=== PATIENT | male | born 1990 | race Caucasian/White ===

== ENCOUNTER 2018-09-05 11:20 | Emergency (ER) | payer OTHER ==
[2018-09-05 11:28] VITALS: BP 138/77; PULSE 91; O2SAT 97
[2018-09-05] MEDS ORDERED: TORAdol 30 mg Injection IM ONE (11:36)
--- NOTE | 2018-09-05 11:41 | ERPHSYRPT ---
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 Triage Nursing Assessment: pt alert, resp easy, skin w/d/p. moves all ext well, pain to upper shoulder that radiates to back, states worse with movement Physician History: 28-year-old white male arrives with complaint of pain in his left shoulder both superiorly and anteriorly symptoms for 2 weeks pain is worse with movement. Patient denies any injury. Past medical history includes 3 protruding discs in his neck. Past surgical history negative. Occurred: other (symptoms for 2 weeks) Method of Injury: unknown Quality: constant Severity of Pain-Max: moderate Severity of Pain-Current: moderate Extremities Pain Location: shoulder: left Modifying Factors: Improves With: movement (pain with movement of left shoulder) Allergies/Adverse Reactions: No Known Drug Allergies Allergy (Verified 09/05/18 11:28) Home Medications: Dextroamphetamine/Amphetamine [Adderall 30 mg Tablet] 30 mg PO DAILY 09/30/13 [ History] Hydrocodone /APAP 7.5/325 mg [[place] 7.5/325 mg Tab] 1 tab PO BID 09/30/13 [ History] Hx Tetanus, Diphtheria Vaccination/Date Given: No Hx Influenza Vaccination/Date Given: Yes Hx Pneumococcal Vaccination/Date Given: No Immunizations Up to Date: Yes - Review of Systems Constitutional: No Fever, No Chills Eyes: No Symptoms Ears, Nose, & Throat: No Symptoms Respiratory: No Cough, No Dyspnea Cardiac: No Chest Pain, No Edema, No Syncope Abdominal/Gastrointestinal: No Abdominal Pain, No Nausea, No Vomiting, No Diarrhea Genitourinary Symptoms: No Dysuria Musculoskeletal: Joint Pain (pain left shoulder worse with movement), No Neck Pain, No Deformity, No Fall, No Injury, No Joint Redness Skin: No Rash Neurological: No Dizziness, No Focal Weakness, No Sensory Changes Psychological: No Symptoms Endocrine: No Symptoms All Other Systems: Reviewed and Negative - Past Medical History Pertinent Past Medical History: Yes Neurological History: No Pertinent History ENT History: No Pertinent History Cardiac History: No Pertinent History Respiratory History: Asthma Endocrine Medical History: No Pertinent History Musculoskeletal History: Other GI Medical History: No Pertinent History History: No Pertinent History Psycho-Social History: No Pertinent History Male Reproductive Disorders: No Pertinent History Other Medical History: 3 PROTRUDING DISKS IN NECK - Past Surgical History Past Surgical History: No Neuro Surgical History: No Pertinent History Cardiac: No Pertinent History Respiratory: No Pertinent History Gastrointestinal: No Pertinent History Genitourinary: No Pertinent History Male Surgical History: No Pertinent History - Social History Smoking Status: Never smoker Exposure to second hand smoke: No Drug Use: none Patient Lives Alone: No - Nursing Vital Signs Nursing Vital Signs: Initial Vital Signs Temperature 98.0 F 09/05/18 11:23 Pulse Rate 91 H 09/05/18 11:23 Respiratory Rate 16 09/05/18 11:23 Blood Pressure 138/77 09/05/18 11:23 O2 Sat by Pulse Oximetry 97 09/05/18 11:23 Pain Scale Pain Intensity 8 - Physical Exam General Appearance: alert Eyes, Ears, Nose, Throat Exam: moist mucous membranes Neck Exam: non-tender, supple, full range of motion Cardiovascular/Respiratory Exam: chest non-tender, normal breath sounds, regular rate/rhythm, no respiratory distress Abdominal Exam: non-tender, No guarding Back Exam: normal inspection, No CVA tenderness, No vertebral tenderness Shoulder Exam: bone tenderness (left shoulder tender superiorlywith palpation and movement), limited ROM (able to abduct left shoulder to 80 able to flex left shoulder to 90 able to touch right shoulder anteriorly with left hand unable to put left hand behind his back.), No normal inspection (left shoulder tender with movemen., Tender with palpation superior left shoulder. Able to abduct left shoulder to 80able to flex left shoulder to 90.), No non-tender, No normal ROM, No asymmetry, No deformity, No ecchymosis Elbow/Forearm Exam: normal inspection, non-tender, no evidence of injury, normal ROM, No abrasions, No asymmetry, No bone tenderness, No deformity, No ecchymosis, No limited ROM, No pain, No soft tissue tenderness, No swelling Wrist Exam: normal inspection, non-tender, no evidence of injury, normal ROM, No abrasions, No asymmetry, No bone tenderness, No deformity, No ecchymosis, No mass, No nodules, No pain, No soft tissue tenderness, No swelling Hand Exam: normal inspection, non-tender, no evidence of injury, normal ROM, No abrasions, No asymmetry, No bone tenderness, No deformity, No ecchymosis, No infection, No laceration, No limited ROM, No nail injury, No soft tissue tenderness, No stiffness, No swelling Neuro/Tendon Exam: normal sensation, normal motor functions Skin Exam: normal color, warm, dry SpO2 Interpretation: normal (978%) SpO2: 97 - Course Nursing assessment & vital signs reviewed: Yes - Radiology Exams Left Shoulder X-ray Interpretation: Discussed w/ radiologist (x-ray left shoulder: Stable humeral neck bone island. No new/acute bony articular or soft tissue abnormalities) Ordered Tests: Active Orders 24 hr Category Date Time Status Sling Application STAT Care 09/05/18 12:08 Active SHOULDER Stat Exams 09/05/18 11:35 Taken Medication Summary Discontinued Medications Generic Name Dose Route Start Last Admin Trade Name Freq PRN Reason Stop Dose Admin Ketorolac Tromethamine 60 mg 09/05/18 11:36 09/05/18 11:53 Toradol 30 Mg Injection IM 09/05/18 11:37 60 mg STAT ONE Administration Ketorolac Tromethamine Confirm 09/05/18 11:52 Toradol 30 Mg Injection Administered 09/05/18 11:53 Dose 60 mg .ROUTE .ST[place]ando-MED ONE - Progress Progress: improved Progress Note: 09/05/18 11:42 28-year-old white male arrives with complaint of pain in his left superior shoulder worse with movement symptoms going on for 2 weeks she denies any obvious injury on physical examination he has pain with palpation superior left shoulder there is also pain when patient tries to move his left shoulder he is able to abduct his left shoulder to 80 she is able to flex his left shoulder to 90 he is able to touch the opposite shoulder anteriorly he is unable to put his left arm or hand behind his back. He has full range of motion to his left elbow hand wrist and fingers good capillary refill to all fingers sensation intact to all fingers radial and ulnar pulses are intact 2 over 4.Meter Reader are equal and symmetrical 5 over 5 Patient does have a history of protruding disks in his neck however he has full range of motion to his neck he spontaneously moves this one talking is able to look around the room without problems he does not have pain with palpation to his neck. Will go ahead and give patient Toradol 60 mg IM also will obtain x-ray of the patient's left shoulder. Inspect has been reviewed patient is currently on hydrocodone acetaminophen 5/ 325 for his pain chronically. 09/05/18 12:04 patient's x-ray left shoulder: Impression: Stable humeral neck bone island. No new/acute bony articular, or soft tissue abnormalities. - Departure Departure Disposition: Home Clinical Impression: Left shoulder pain Qualifiers: Chronicity: acute Qualified Code(s): M25.512 - Pain in left shoulder Left shoulder strain Qualifiers: Encounter type: initial encounter Qualified Code(s): S46.912A - Strain of unspecified muscle, fascia and tendon at shoulder and upper arm level, left arm , initial encounter Condition: Fair Critical Care Time: No Referrals: EMILY LAI MD [Primary Care Provider] - Additional Instructions: Return home. Ice to left shoulder 24-48 hours. Wear sling left arm 48-72 hours. Naprosyn as prescribed. Follow-up with your family doctor if symptoms no better in 48 hours worse or persist longer than one week. Return for acute distress or for severe symptoms. Prescriptions: Naproxen 500 mg [Naprosyn 500 MG] 500 mg PO BID #14 tablet
[2018-09-05] MEDS ORDERED: TORAdol 30 mg Injection ONE (11:52)
--- NOTE | 2018-09-05 12:11 | XRAY ---
Indication: Pain. Comparison: February 13, 2013. 3 views of the left shoulder demonstrates stable humeral neck bone island. No new/acute bony, articular, or soft tissue abnormalities.
== END 2018-09-05 12:22 | disposition home or self-care (01) ==
LOC: ED 11:20
DX: M25.512 Pain in left shoulder (principal); S46.912A Strain of unspecified muscle, fascia and tendon at shoulder and upper arm level, left arm, initial encounter; M50.20 Other cervical disc displacement, unspecified cervical region
CPT/HCPCS: 73030; 96372; 99284; J1885

== ENCOUNTER 2018-10-24 11:38 | Emergency (ER) | payer OTHER ==
[2018-10-24 12:21] VITALS: O2SAT 98
[2018-10-24] MEDS ORDERED: TORAdol 30 mg Injection IM ONE (12:36)
[2018-10-24] MEDS ORDERED: TORAdol 30 mg Injection ONE (12:39)
--- NOTE | 2018-10-24 12:45 | ERPHSYRPT ---
- History of Present Illness Time Seen by Provider: 10/24/18 12:36 Source: patient Exam Limitations: no limitations Patient Subjective Stated Complaint: Pt states "I have had neck problems for years, I have had shoulder problems for awhile as well. I go to Dr. Daniel for my shoulder and Dr. Lai for my neck. I got a cortizone shot on the of this month and a nerve test on the . I have bulging disks in my neck and rotator cuff issues in the left shoulder. Today I started to hurt really bad and my fingers went numb on my left hand." Triage Nursing Assessment: Pt presented alert and oriented X 3, skin pwd. Pt ambualtes with a stiff neck and guards his left shouler, no bruising, swelling, deformity noted. Physician History: 28-year-old white male with history of chronic neck and shoulder pain who has seen Dr. Alonso and Dr. Lai for the same. Who has had a recent injection on 04 October. And apparently had physical therapy yesterday. Patient states that he at work and he had sharp shooting pains down his left shoulder and arm and hand associated with some numbness of the left hand. He has some pain over the trapezius. He denies new injury. Past medical history protruding discs in his neck, asthma, chronic left shoulder pain and left neck pain. Patient is on hydrocodone and dextroamphetamine/amphetamine at home Timing/Duration: today Severity: moderate Modifying Factors: Improves With: nothing Associated Symptoms: No nausea, No vomiting, No abdominal pain, No shortness of breath, No heartburn, No diaphoresis, No cough, No chills, No chest pain, No fever, No headaches, No loss of appetite, No malaise, No rash, No syncope, No seizure, No weakness Allergies/Adverse Reactions: No Known Drug Allergies Allergy (Verified 09/05/18 11:28) Home Medications: Dextroamphetamine/Amphetamine [Adderall 30 mg Tablet] 30 mg PO DAILY 09/30/13 [ History] Hydrocodone /APAP 7.5/325 mg [[place] 7.5/325 mg Tab] 1 tab PO BID 09/30/13 [ History] Hx Tetanus, Diphtheria Vaccination/Date Given: Yes Hx Influenza Vaccination/Date Given: Yes Hx Pneumococcal Vaccination/Date Given: No Immunizations Up to Date: Yes - Review of Systems Constitutional: No Fever, No Chills Eyes: No Symptoms Ears, Nose, & Throat: No Symptoms Respiratory: No Cough, No Dyspnea Cardiac: No Chest Pain, No Edema, No Syncope Abdominal/Gastrointestinal: No Abdominal Pain, No Nausea, No Vomiting, No Diarrhea Genitourinary Symptoms: No Dysuria Musculoskeletal: Other (pain radiating from neck across trapezius down shoulder into hand on the left) Skin: No Rash Neurological: Parasthesia (patient states he felt numbness in the left hand) Psychological: No Symptoms Endocrine: No Symptoms All Other Systems: Reviewed and Negative - Past Medical History Pertinent Past Medical History: Yes Neurological History: No Pertinent History ENT History: No Pertinent History Cardiac History: No Pertinent History Respiratory History: Asthma Endocrine Medical History: No Pertinent History Musculoskeletal History: Osteoarthritis GI Medical History: No Pertinent History History: No Pertinent History Psycho-Social History: No Pertinent History Male Reproductive Disorders: No Pertinent History Other Medical History: OA of knees. C4-6 disc protrusion - Past Surgical History Past Surgical History: No Neuro Surgical History: No Pertinent History Cardiac: No Pertinent History Respiratory: No Pertinent History Gastrointestinal: No Pertinent History Genitourinary: No Pertinent History Male Surgical History: No Pertinent History - Social History Smoking Status: Former smoker Exposure to second hand smoke: Yes Drug Use: none Patient Lives Alone: No - Nursing Vital Signs Nursing Vital Signs: Initial Vital Signs Temperature 98.1 F 10/24/18 12:16 Pulse Rate 67 10/24/18 12:16 Respiratory Rate 16 10/24/18 12:16 Blood Pressure 135/84 10/24/18 12:16 O2 Sat by Pulse Oximetry 98 10/24/18 12:16 Pain Scale Pain Intensity 9 - Physical Exam General Appearance: mild distress, alert Eye Exam: PERRL/EOMI, eyes nml inspection Ears, Nose, Throat Exam: normal ENT inspection, TMs normal, pharynx normal, moist mucous membranes Neck Exam: normal inspection, supple, full range of motion, No non-tender (neck tender with palpation lateral left neck and over trapezius) Respiratory Exam: normal breath sounds, lungs clear, No respiratory distress Cardiovascular Exam: regular rate/rhythm, normal heart sounds, normal peripheral pulses, capillary refill <2 sec Gastrointestinal/Abdomen Exam: soft, normal bowel sounds, No tenderness, No mass Back Exam: normal inspection, normal range of motion, No CVA tenderness, No vertebral tenderness Neurologic Exam: alert, oriented x 3, cooperative, normal mood/affect, nml cerebellar function, nml station & gait, sensation nml, other (patient with a weak effort at gripping left hand but full range of motion all extremities), No motor deficits, No sensory deficit Skin Exam: normal color, warm, dry, No rash Lymphatic Exam: No adenopathy SpO2 Interpretation: normal (98%) SpO2: 98 - Course Nursing assessment & vital signs reviewed: Yes - Radiology Exams Left Shoulder X-ray Interpretation: Discussed w/ radiologist (x-ray left shoulder: Impression : Stable humeral neck bone island. No new/acute bony, articular, or soft tissue abnormalities.) C-Spine X-ray Interpretation: Discussed w/ radiologist (x-ray C-spine: Impression: Normal alignment with vertebral body height/disc space is maintained and incidental left lung apex calcified granuloma. No new/acute bony, articular, or soft tissue abnormalities.) Ordered Tests: Active Orders 24 hr Category Date Time Status Sling Application STAT Care 10/24/18 13:15 Active CERVICAL SPINE (2 OR 3 VIEW) Stat Exams 10/24/18 12:34 Completed SHOULDER Stat Exams 10/24/18 12:35 Completed Medication Summary Discontinued Medications Generic Name Dose Route Start Last Admin Trade Name Freq PRN Reason Stop Dose Admin Ketorolac Tromethamine 60 mg 10/24/18 12:36 10/24/18 12:41 Toradol 30 Mg Injection IM 10/24/18 12:37 60 mg STAT ONE Administration Ketorolac Tromethamine Confirm 10/24/18 12:39 Toradol 30 Mg Injection Administered 10/24/18 12:40 Dose 60 mg .ROUTE .[place]-MED ONE - Progress Progress: improved Progress Note: 10/24/18 13:16 Patient's x-ray left shoulder stable humeral neck bone island. No new/acute bony, articular, or soft tissue abnormalities. Patient x-ray C-spine impression normal alignment with vertebral body height/ disc spaces maintained an incidental left lung apex calcified granuloma. No new /acute bony, articular, or soft tissue abnormalities. Patient is given Toradol 60 mg IM in the emergency room will also place patient on Flexeril 10 mg orally [address] sling on left arm. Patient apparently has an appointment with Dr. Lai on Sunday. He is to continue his pain medications as prescribed by Dr. Lai. - Departure Departure Disposition: Home Clinical Impression: Radiculopathy affecting upper extremity, Paresthesia of left arm Left shoulder pain Qualifiers: Chronicity: acute Qualified Code(s): M25.512 - Pain in left shoulder Condition: Fair Critical Care Time: No Referrals: EMILY LAI MD [Primary Care Provider] - Additional Instructions: Return home. Cold packs left shoulder 24-48 hours. Use sling 48-72 hours. Followup with your family DrDiane at prearranged appointment, sooner if problems worsening of condition. Return for acute distress or for severe symptoms. Cyclobenzaprine 10 mg orally 3 times a day for 5 days as needed Prescriptions: Cyclobenzaprine HCl 10 mg [Cyclobenzaprine 10 MG] 10 mg PO TID PRN #15 tablet
--- NOTE | 2018-10-24 13:09 | XRAY ---
Indication: Pain. No acute injury. Comparison: September 05, 2018. 3 views of the left shoulder demonstrates stable humeral neck bone island. No new/acute bony, articular, or soft tissue abnormalities.
--- NOTE | 2018-10-24 13:11 | XRAY ---
Indication: Neck pain radiating left arm. History bulging disc. Comparison: CT cervical spine September 30, 2013. 4 views of the cervical spine again demonstrates normal alignment with vertebral body heights/disc spaces maintained and incidental left lung apex calcified granuloma. No new/acute bony, articular, or soft tissue abnormalities.
[2018-10-24 13:22] VITALS: BP 121/75; PULSE 74
== END 2018-10-24 13:29 | disposition home or self-care (01) ==
LOC: ED 11:38
DX: M25.512 Pain in left shoulder (principal); M54.10 Radiculopathy, site unspecified; R20.2 Paresthesia of skin; M54.2 Cervicalgia
CPT/HCPCS: 72040; 73030; 96372; 99284; J1885

== ENCOUNTER 2020-10-27 12:08 | Emergency (ER) | payer OTHER ==
--- NOTE | 2020-10-27 12:25 | ERPHSYRPT ---
- History of Present Illness Time Seen by Provider: 10/27/20 12:20 Source: patient Exam Limitations: no limitations Patient Subjective Stated Complaint: Swelling Triage Nursing Assessment: Patient ambulated back to ED and transferred self to bed. Patient A+O x3. patient's skin pink, warm and dry. Patient complains of waking up with facial swelling at 0700 this am. Patient states his face turned red and started getting warm. Patient had heart cath yesterday per Dr. Berman. Patient denies pain or discomfort. Physician History: This is a 30-year-old white male who has a history of dental infection and also underwent a cardiac catheterization by Dr. Berman yesterday morning. This morning, the patient presents to the emergency department with complaints of facial swelling. Patient has no pain anywhere. The cardiac catheterization was performed through the right upper extremity. Patient has no shortness of br eath. He has no evidence of any rash. He has no chest pain. He is not short of breath. He has no facial pain. He has no abdominal pain. He has no significant pain in his right wrist where the surgery was performed. Patient did take Benadryl at 7:00 this morning and then again at 11:00 this morning. Patient states that he has no known exposures to any new pets, soaps, medications. No other individuals of similar issues. Patient has not been bitten by an insect of any type. Timing/Duration: today Severity: mild Modifying Factors: Improves With: nothing Allergies/Adverse Reactions: No Known Drug Allergies Allergy (Verified 10/27/20 12:09) Hx Tetanus, Diphtheria Vaccination/Date Given: Yes Hx Influenza Vaccination/Date Given: No Hx Pneumococcal Vaccination/Date Given: No Immunizations Up to Date: Yes Travel Risk - International Travel Have you traveled outside of the country in past 3 weeks: No - Coronavirus Screening Are you exhibiting any of the following symptoms?: No - Vaccine Status Have you recieved a Covid-19 vaccination: No - Review of Systems Constitutional: No Symptoms Eyes: No Symptoms Ears, Nose, & Throat: Other (Bilateral facial swelling) Respiratory: No Symptoms Cardiac: No Symptoms Abdominal/Gastrointestinal: No Symptoms Genitourinary Symptoms: No Symptoms Musculoskeletal: No Symptoms Skin: No Rash Neurological: No Symptoms Psychological: No Symptoms Endocrine: No Symptoms Hematologic/Lymphatic: No Symptoms Immunological/Allergic: No Symptoms All Other Systems: Reviewed and Negative - Past Medical History Pertinent Past Medical History: Yes Neurological History: Migraines ENT History: No Pertinent History Cardiac History: No Pertinent History Respiratory History: Asthma Endocrine Medical History: No Pertinent History Musculoskeletal History: Osteoarthritis GI Medical History: GERD History: No Pertinent History Psycho-Social History: No Pertinent History Male Reproductive Disorders: No Pertinent History Other Medical History: OA of knees. C4-6 disc protrusion - Past Surgical History Past Surgical History: Yes Neuro Surgical History: No Pertinent History Cardiac: Cardiac Catheterization Respiratory: No Pertinent History Gastrointestinal: No Pertinent History Genitourinary: No Pertinent History Musculoskeletal: No Pertinent History Male Surgical History: No Pertinent History Other Surgical History: Cardiac cath X 2 - Social History Smoking Status: Never smoker Exposure to second hand smoke: Yes Drug Use: none Patient Lives Alone: No - Nursing Vital Signs Nursing Vital Signs: Initial Vital Signs Temperature 98.2 F 10/27/20 12:11 Pulse Rate 71 10/27/20 12:11 Respiratory Rate 18 10/27/20 12:11 Blood Pressure 119/67 10/27/20 12:11 O2 Sat by Pulse Oximetry 100 10/27/20 12:11 Pain Scale Pain Intensity 0 - Physical Exam General Appearance: no apparent distress, alert, anxiety Eye Exam: PERRL/EOMI Ears, Nose, Throat Exam: normal ENT inspection, moist mucous membranes, other (Poor dentition right worse than left) Neck Exam: normal inspection, non-tender, supple, full range of motion Respiratory Exam: normal breath sounds, lungs clear, airway intact, No chest tenderness, No respiratory distress Cardiovascular Exam: regular rate/rhythm, normal heart sounds, normal peripheral pulses Gastrointestinal/Abdomen Exam: soft, normal bowel sounds, No tenderness Rectal Exam: not done Back Exam: normal inspection, normal range of motion, vertebral tenderness, No CVA tenderness Extremity Exam: normal inspection, normal range of motion, pelvis stable, other (The bandage was removed from the right wrist. This was taken off greater than for 24 hours after the procedure was performed. This was the instructions given to the patient. The area showed no bruising, there is no bleeding. There is no evidence of any infection or rash. We replaced a bandage p) Neurologic Exam: alert, oriented x 3, cooperative, bisque kiln placer II-XII nml as tested, normal mood/affect, nml cerebellar function, nml station & gait, sensation nml Skin Exam: normal color, warm, dry Lymphatic Exam: No adenopathy SpO2 Interpretation: normal SpO2: 100 O2 Delivery: Room Air - Course Nursing assessment & vital signs reviewed: Yes EKG Interpreted by Me: RATE (71), Sinus Rhythm, NORMAL AXIS, NORMAL INTERVALS, NORMAL QRS, NORMAL ST-T, Other (No acute ischemic changes on today's EKG. When compared to EKG dated 06/17/2015, the right bundle branch block has resolved.) Ordered Tests: Active Orders 24 hr Category Date Time Status Division Sales Manager STAT Care 10/27/20 12:25 Active EKG-ER Only STAT Care 10/27/20 12:25 Active IV Insertion STAT Care 10/27/20 12:25 Active Pulse Oximetry (ED) STAT Care 10/27/20 12:25 Active CBC W DIFF Stat Lab 10/27/20 12:25 Completed CMP Stat Lab 10/27/20 12:25 Completed D-DIMER QUANTITATIVE Stat Lab 10/27/20 12:25 Completed NT PRO BNP Stat Lab 10/27/20 12:25 Completed TROPONIN Q3H Lab 10/27/20 12:25 Completed TROPONIN Q3H Lab 10/27/20 15:30 Ordered TROPONIN Q3H Lab 10/27/20 18:30 Ordered TROPONIN Q3H Lab 10/27/20 21:30 Ordered TROPONIN Q3H Lab 10/28/20 00:30 Ordered Medication Summary Discontinued Medications Generic Name Dose Route Start Last Admin Trade Name Freq PRN Reason Stop Dose Admin Cephalexin HCl 500 mg 10/27/20 12:50 10/27/20 13:07 Keflex 500 Mg PO 10/27/20 12:51 500 mg STAT ONE Administration Cephalexin HCl Confirm 10/27/20 13:02 Keflex 500 Mg Administered 10/27/20 13:03 Dose 500 mg .ROUTE .STK-MED ONE Diphenhydramine HCl 25 mg 10/27/20 12:49 10/27/20 13:12 Benadryl 50 Mg/Ml IV 10/27/20 12:50 25 mg STAT ONE Administration Diphenhydramine HCl Confirm 10/27/20 13:01 Benadryl 50 Mg/Ml Administered 10/27/20 13:02 Dose 50 mg .ROUTE .STK-MED ONE Famotidine 40 mg 10/27/20 12:49 10/27/20 13:14 Pepcid 20 Mg Vial IV 10/27/20 12:50 40 mg STAT ONE Administration Famotidine Confirm 10/27/20 13:02 Pepcid 20 Mg Vial Administered 10/27/20 13:03 Dose 40 mg IV .STK-MED ONE Methylprednisolone Sodium Succinate 125 mg 10/27/20 12:50 10/27/20 13:09 Solu-Medrol 125 Mg IV 10/27/20 12:51 125 mg STAT ONE Administration Methylprednisolone Sodium Succinate Confirm 10/27/20 13:02 Solu-Medrol 125 Mg Administered 10/27/20 13:03 Dose 125 mg .ROUTE .STK-MED ONE Lab/Rad Data: Laboratory Result Diagrams 10/27/20 12:25 10/27/20 12:25 Laboratory Results 10/27/20 10/27/20 10/27/20 Range/Units 12:25 12:25 12:25 WBC (4.0-10.5) K/mm3 RBC (4.1-5.6) M/mm3 Hgb (12.5-18.0) gm/dl Hct (42-50) % MCV (78-100) fl MCH (26-32) pg MCHC (32-36) g/dl RDW (11.5-14.0) % Plt Count (150-450) K/mm3 MPV (7.5-11.0) fl Gran % (36.0-66.0) % Eos # (Auto) (0-0.5) Absolute Lymphs (auto) (1.0-4.6) Absolute Monos (auto) (0.0-1.3) Lymphocytes % (24.0-44.0) % Monocytes % (0.0-12.0) % Eosinophils % (0.00-5.0) % Basophils % (0.0-0.4) % Absolute Granulocytes (1.4-6.9) Basophils # (0-0.4) D-Dimer < 215 L (215-500) ng/mL Sodium 138 (137-145) mmol/L Potassium 4.6 (3.5-5.1) mmol/L Chloride 104 (98-107) mmol/L Carbon Dioxide 26 (22-30) mmol/L Anion Gap 13.2 (5-15) MEQ/L BUN 16 (9-20) mg/dL Creatinine 0.73 (0.66-1.25) mg/dL Estimated GFR > 60.0 ML/MIN Glucose 104 (74-106) mg/dL Calcium 9.0 (8.4-10.2) mg/dL Total Bilirubin 1.50 H (0.2-1.3) mg/dL AST 38 (17-59) U/L ALT 30 (0-50) U/L Alkaline Phosphatase 48 (38-126) U/L Troponin I < 0.012 (0.000-0.034) ng/mL NT-Pro-B Natriuret Pep 30.5 (0-450) pg/mL Serum Total Protein 6.8 (6.3-8.2) g/dL Albumin 4.1 (3.5-5.0) g/dL 10/27/20 Range/Units 12:25 WBC 7.4 (4.0-10.5) K/mm3 RBC 5.23 (4.1-5.6) M/mm3 Hgb 15.1 (12.5-18.0) gm/dl Hct 45.6 (42-50) % MCV 87.2 (78-100) fl MCH 28.9 (26-32) pg MCHC 33.1 (32-36) g/dl RDW 12.7 (11.5-14.0) % Plt Count 179 (150-450) K/mm3 MPV 11.0 (7.5-11.0) fl Gran % 74.3 H (36.0-66.0) % Eos # (Auto) 0.19 (0-0.5) Absolute Lymphs (auto) 1.33 (1.0-4.6) Absolute Monos (auto) 0.36 (0.0-1.3) Lymphocytes % 17.9 L (24.0-44.0) % Monocytes % 4.9 (0.0-12.0) % Eosinophils % 2.6 (0.00-5.0) % Basophils % 0.3 (0.0-0.4) % Absolute Granulocytes 5.52 (1.4-6.9) Basophils # 0.02 (0-0.4) D-Dimer (215-500) ng/mL Sodium (137-145) mmol/L Potassium (3.5-5.1) mmol/L Chloride (98-107) mmol/L Carbon Dioxide (22-30) mmol/L Anion Gap (5-15) MEQ/L BUN (9-20) mg/dL Creatinine (0.66-1.25) mg/dL Estimated GFR ML/MIN Glucose (74-106) mg/dL Calcium (8.4-10.2) mg/dL Total Bilirubin (0.2-1.3) mg/dL AST (17-59) U/L ALT (0-50) U/L Alkaline Phosphatase (38-126) U/L Troponin I (0.000-0.034) ng/mL NT-Pro-B Natriuret Pep (0-450) pg/mL Serum Total Protein (6.3-8.2) g/dL Albumin (3.5-5.0) g/dL - Progress Progress: unchanged Counseled pt/family regarding: lab results, diagnosis, need for follow-up - Departure Departure Disposition: Home Clinical Impression: Contact dermatitis, Dental infection Condition: Stable Critical Care Time: No Referrals: EMILY LAI MD [Primary Care Provider] - Additional Instructions: Take Benadryl 25 mg orally 3 times a day for the next 4 days. Take all other medications as prescribed. Return to the emergency department if symptoms worsen. Prescriptions: Prednisone 10 mg [Deltasone 10 mg] 10 mg PO TID #12 tablet Cephalexin Mh 500 mg [Keflex 500 mg] 500 mg PO TID #21 capsule Famotidine 20 mg [Pepcid 20 MG] 20 mg PO DAILY #10 tablet
[2020-10-27 12:47] LABS: Absolute Neutrophil Ct (ANC) 5.52 (1.4-6.9); BASOPHIL % 0.3 % (0.0-0.4); Basophil (Absolute #) 0.02 (0-0.4); Eosinophil % 2.6 % (0.00-5.0); Eosinophil (Absolute #) 0.19 (0-0.5); Hematocrit 45.6 % (42-50); Hemoglobin 15.1 gm/dl (12.5-18.0); Lymphocyte (Absolute #) 1.33 (1.0-4.6); Lymphocytes % 17.9 % (24.0-44.0); Mean Cell Volume 87.2 fl (78-100); Mean Corpuscular Hemoglobin 28.9 pg (26-32); Mean Corpuscular Hgb Concent. 33.1 g/dl (32-36); Monocyte (Absolute #) 0.36 (0.0-1.3); Monocytes % 4.9 % (0.0-12.0); Neutrophil % 74.3 % (36.0-66.0); Platelet Count 179 K/mm3 (150-450); Red Blood Count 5.23 M/mm3 (4.1-5.6); Red Cell Distribution Width 12.7 % (11.5-14.0); White Blood Count 7.4 K/mm3 (4.0-10.5)
[2020-10-27] MEDS ORDERED: Pepcid 20 MG VIAL IV ONE ×2 (12:49→13:02)
[2020-10-27] MEDS ORDERED: BENADRYL 50 MG/ML IV ONE (12:49)
[2020-10-27] MEDS ORDERED: solu-MEDROL 125 MG IV ONE (12:50)
[2020-10-27] MEDS ORDERED: KEFLEX 500 MG PO ONE (12:50)
[2020-10-27] MEDS ORDERED: BENADRYL 50 MG/ML ONE (13:01)
[2020-10-27] MEDS ORDERED: solu-MEDROL 125 MG ONE (13:02)
[2020-10-27] MEDS ORDERED: KEFLEX 500 MG ONE (13:02)
[2020-10-27 13:09] LABS: ALBUMIN 4.1 g/dL (3.5-5.0); ALKALINE PHOSPHATASE 48 U/L (38-126); ANION GAP 13.2 MEQ/L (5-15); BLOOD UREA NITROGEN 16 mg/dL (9-20); CHLORIDE 104 mmol/L (98-107); Carbon Dioxide 26 mmol/L (22-30); Creatinine 1 0.73 mg/dL (0.66-1.25); EST GLOMERULAR FILTRATION RATE > 60.0 ML/MIN; Glucose 104 mg/dL (74-106); NT PRO BNP 30.5 pg/mL (0-450); Potassium 4.6 mmol/L (3.5-5.1); SGOT/AST 38 U/L (17-59); SGPT/ALT 30 U/L (0-50); SODIUM 138 mmol/L (137-145); Total Protein 6.8 g/dL (6.3-8.2)
[2020-10-27 13:45] VITALS: BP 122/79; PULSE 69; O2SAT 98
== END 2020-10-27 14:07 | disposition home or self-care (01) ==
LOC: ED 12:08
DX: L25.9 Unspecified contact dermatitis, unspecified cause (principal); K04.7 Periapical abscess without sinus
CPT/HCPCS: 36000; 36415; 80053; 83880; 84484; 85025; 85379; 93005; 93041; 94760; 96374; 96375; 99284; J1200; J2930; A9270-GY

== ENCOUNTER 2021-01-24 21:11 | Emergency (ER) | payer OTHER ==
[2021-01-24 21:44] LABS: Absolute Neutrophil Ct (ANC) 6.73 (1.4-6.9); BASOPHIL % 0.2 % (0.0-0.4); Basophil (Absolute #) 0.02 (0-0.4); Eosinophil % 1.3 % (0.00-5.0); Eosinophil (Absolute #) 0.13 (0-0.5); Hematocrit 45.1 % (42-50); Hemoglobin 15.2 gm/dl (12.5-18.0); Lymphocytes % 23.8 % (24.0-44.0); Mean Cell Volume 87.6 fl (78-100); Mean Corpuscular Hemoglobin 29.5 pg (26-32); Mean Corpuscular Hgb Concent. 33.7 g/dl (32-36); Mean Platelet Volume 11.6 fl (7.5-11.0); Monocyte (Absolute #) 0.81 (0.0-1.3); Neutrophil % 66.7 % (36.0-66.0); Platelet Count 183 K/mm3 (150-450); Red Blood Count 5.15 M/mm3 (4.1-5.6); Red Cell Distribution Width 12.9 % (11.5-14.0); White Blood Count 10.1 K/mm3 (4.0-10.5)
[2021-01-24 21:56] LABS: ALBUMIN 4.7 g/dL (3.5-5.0); ALKALINE PHOSPHATASE 67 U/L (38-126); ANION GAP 15.7 MEQ/L (5-15); BLOOD UREA NITROGEN 18 mg/dL (9-20); CHLORIDE 104 mmol/L (98-107); Calcium 9.5 mg/dL (8.4-10.2); Carbon Dioxide 26 mmol/L (22-30); Creatinine 1 0.78 mg/dL (0.66-1.25); EST GLOMERULAR FILTRATION RATE > 60.0 ML/MIN; Glucose 85 mg/dL (74-106); SGOT/AST 36 U/L (17-59); SGPT/ALT 29 U/L (0-50); SODIUM 142 mmol/L (137-145); Total Protein 7.5 g/dL (6.3-8.2)
--- NOTE | 2021-01-24 22:15 | ERPHSYRPT ---
- History of Present Illness Source: patient, other () Patient Subjective Stated Complaint: Patient states ge doesn't remember much. Consulted with and states " he was sitting at home on the couch and he started acting funny around 194 and then I asked him what was wrong and he told me he was having chest pain. I then gave him a Nitro and waited and within 5 minutes he told me pain wasn't any better so I gave another Nitro andf waited and called his mom and she told me I should bring him to ER." Triage Nursing Assessment: Patient arrived to ED in W/C and was 1 assist getting to ER room. Patient independent with transfer to bed. Patient A/O times 4. Patient stated he doesn't remember much of what happened. Patient stated he was sitting on couch and then the next thing he remembers is being in the kitchen but stated he didn't fall. Patient told RN that before everything when he was sitting on couch he got a feeling of nausea. RN asked if he vomited and stated no. Patient upon arrival to ER room denies any chest pain. Patient stated he has pain all over not one specific area. Patient stated that is normal for him. Patient stated he has HX of SD and has had 2 heart caths. Patient denies any pain that went into left arm,back or jaw. Patient's central color W NL. Respiratory regular and easy and non-labored. Patient denies any SOB. Patient shows no S/S of respiratory distress. Apical pulse auscultated at 80 and regular. Patient with no dependent edema noted. + Apical and pedal pulses noted bilateral. Bilateral hand armature inspector strong and equal. Patient bilateral pupils brisk and equal. stated patient has been under alot of stress because he started back to school and he was trying to get his papers done on time. 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 Patient states he takes 81MG of ASA daily. Physician History: 30 yo wf w syncopal episode while in kitchen w children. states that pt has cardiac cath x2 by Dr. Berman who believes that pt has had an SD. He has switched to Dr. Brown in [place] whom he will see for first time on 01/28/21. Pt states that he was having some chest pain before his syncopal episode. gave him SL NTG x2 at home. Focal weakness/dyspnea/N/V/cough/MEMBRENO/fever are all denied at present. Witnessed: unwitnessed Prior Episodes: single episode today Timing/Duration: other (Before arrival) Context: standing Loss of Consciousness: brief (seconds) Charcter of event(s): collapsed Allergies/Adverse Reactions: No Known Drug Allergies Allergy (Verified 01/24/21 21:31) Home Medications: Albuterol 17 g IH Q4-6HPRN PRN 01/24/21 [History] Atorvastatin Calcium 80 mg PO HS 01/24/21 [History] Dextroamphetamine/Amphetamine [Dextroamp-Amphetamin 15 mg Tab] 15 mg PO DAILY 01/24/21 [History] Naproxen 500 mg [Naprosyn 500 MG] 500 mg PO BID 01/24/21 [History] Sacubitril/Valsartan [Entresto 24 mg-26 mg Tablet] 1 tab PO DAILY 01/24/21 [Hi story] Hx Tetanus, Diphtheria Vaccination/Date Given: Yes Hx Influenza Vaccination/Date Given: No Hx Pneumococcal Vaccination/Date Given: No Immunizations Up to Date: Yes Travel Risk - International Travel Have you traveled outside of the country in past 3 weeks: No - Coronavirus Screening Are you exhibiting any of the following symptoms?: No Close contact with a COVID-19 positive Pt in past 14-21 Days: No - Vaccine Status Have you recieved a Covid-19 vaccination: No - Past Medical History Pertinent Past Medical History: Yes Neurological History: Migraines ENT History: No Pertinent History Cardiac History: Hypertension, Myocardial Infarction (SD) Respiratory History: Asthma Endocrine Medical History: No Pertinent History Musculoskeletal History: Osteoarthritis GI Medical History: GERD History: No Pertinent History Psycho-Social History: No Pertinent History Male Reproductive Disorders: No Pertinent History Other Medical History: OA of knees. C4-6 disc protrusion - Past Surgical History Past Surgical History: Yes Neuro Surgical History: No Pertinent History Cardiac: Cardiac Catheterization Respiratory: No Pertinent History Gastrointestinal: No Pertinent History Genitourinary: No Pertinent History Musculoskeletal: No Pertinent History Male Surgical History: No Pertinent History Other Surgical History: Cardiac cath X 2 - Social History Smoking Status: Never smoker Exposure to second hand smoke: Yes Drug Use: none Patient Lives Alone: No Significant Family History: no pertinent family hx - Review of Systems Constitutional: No Symptoms, Lethargy Eyes: No Symptoms Ears, Nose, & Throat: No Symptoms Respiratory: No Symptoms Cardiac: No Symptoms, Chest Pain Abdominal/Gastrointestinal: No Symptoms Genitourinary Symptoms: No Symptoms Musculoskeletal: No Symptoms Skin: No Symptoms Neurological: No Symptoms Psychological: No Symptoms Endocrine: No Symptoms Hematologic/Lymphatic: No Symptoms Immunological/Allergic: No Symptoms Physical Exam - Nursing Vital Signs Nursing Vital Signs: Initial Vital Signs Temperature 97.9 F 01/24/21 21:20 Pulse Rate 64 01/24/21 21:20 Respiratory Rate 22 01/24/21 21:20 Blood Pressure 105/80 01/24/21 21:20 O2 Sat by Pulse Oximetry 100 01/24/21 21:20 Pain Scale Pain Intensity [] 10 Pain Intensity 0 BP on low end for body habitus. Possible due to SL NTG. - Millen Coma Scale Best Eye Response (Millen): (4) open spontaneously Best Verbal Response (Marj): (5) oriented Best Motor Response (Millen): (6) obeys commands Millen Total: 15 - Physical Exam General Appearance: no apparent distress Eye Exam: bilateral eye: normal inspection, PERRL, EOMI Ears, Nose, Throat Exam: normal ENT inspection, TMs normal, pharynx normal, moist mucous membranes Neck Exam: normal inspection, non-tender, supple, full range of motion, No meningismus, No mass, No Brudzinski, No Kernig's Respiratory: normal breath sounds, lungs clear, airway intact, No respiratory distress Cardiovascular: regular rate/rhythm, normal heart sounds, normal peripheral pulses, capillary refill <2 sec, No murmur Gastrointestinal: soft, normal bowel sounds, No tenderness Back Exam: normal inspection, normal range of motion, No CVA tenderness, No vertebral tenderness Extremity Exam: normal inspection, normal range of motion Peripheral Pulses: carotid (R): 2+, carotid (L): 2+ Mental Status: alert, oriented x 3, cooperative 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 abuse social worker Exam: normal hearing, normal speech, PERRL, No abnormal eye position, No abnormal gag reflex, No abnormal pupil position, No facial asymmetry Motor/Sensory: no motor deficit, no sensory deficit, no pronator drift DTR: bicep (R): 2+, bicep (L): 2+, knee (R): 2+, knee (L): 2+ Skin Exam: normal color, warm, dry, No rash SpO2 Interpretation: normal SpO2: 100 O2 Delivery: Room Air - Course EKG Interpreted by Me: RATE (NSR/R68/IVCD-RSR pattern V1-V2/Normal QT- QTc/Nonspecific ST-T wave changes) - CT Exams Head CT Interpretation: Tele-radiologist Report (NAD) Ordered Tests: Active Orders 24 hr Category Date Time Status EKG-ER Only STAT Care 01/24/21 21:30 Completed HEAD WITHOUT CONTRAST [CT] Stat Exams 01/24/21 23:11 Taken CBC W DIFF Stat Lab 01/24/21 21:30 Completed CMP Stat Lab 01/24/21 21:30 Completed D-DIMER QUANTITATIVE Stat Lab 01/24/21 22:50 Completed Lactic Acid Stat Lab 01/24/21 21:42 Completed TROPONIN Q3H Lab 01/24/21 21:30 Completed TROPONIN Q3H Lab 01/25/21 00:30 Ordered UA W/RFX UR CULTURE Stat Lab 01/24/21 23:21 Completed Urine Triage Profile Stat Lab 01/24/21 23:21 Completed Lab/Rad Data: Laboratory Result Diagrams 01/24/21 21:30 01/24/21 21:30 Laboratory Results 01/24/21 01/24/21 01/24/21 Range/Units 23:21 23:21 22:50 WBC (4.0-10.5) K/mm3 RBC (4.1-5.6) M/mm3 Hgb (12.5-18.0) gm/dl Hct (42-50) % MCV (78-100) fl MCH (26-32) pg MCHC (32-36) g/dl RDW (11.5-14.0) % Plt Count (150-450) K/mm3 MPV (7.5-11.0) fl Gran % (36.0-66.0) % Eos # (Auto) (0-0.5) Absolute Lymphs (auto) (1.0-4.6) Absolute Monos (auto) (0.0-1.3) Lymphocytes % (24.0-44.0) % Monocytes % (0.0-12.0) % Eosinophils % (0.00-5.0) % Basophils % (0.0-0.4) % Absolute Granulocytes (1.4-6.9) Basophils # (0-0.4) D-Dimer < 215 L (215-500) ng/mL Sodium (137-145) mmol/L Potassium (3.5-5.1) mmol/L Chloride (98-107) mmol/L Carbon Dioxide (22-30) mmol/L Anion Gap (5-15) MEQ/L BUN (9-20) mg/dL Creatinine (0.66-1.25) mg/dL Estimated GFR ML/MIN Glucose (74-106) mg/dL Lactic Acid (0.4-2.0) Calcium (8.4-10.2) mg/dL Total Bilirubin (0.2-1.3) mg/dL AST (17-59) U/L ALT (0-50) U/L Alkaline Phosphatase (38-126) U/L Troponin I (0.000-0.034) ng/mL Serum Total Protein (6.3-8.2) g/dL Albumin (3.5-5.0) g/dL Urine Color YELLOW (YELLOW) Urine Appearance CLEAR (CLEAR) Urine pH 6.0 (5-6) Ur Specific [place] 1.023 (1.005-1.025) Urine Protein NEGATIVE (Negative) Urine Ketones NEGATIVE (NEGATIVE) Urine Blood NEGATIVE (0-5) Shiva/ul Urine Nitrite NEGATIVE (NEGATIVE) Urine Bilirubin NEGATIVE (NEGATIVE) Urine Urobilinogen NEGATIVE (0-1) mg/dL Ur Leukocyte Esterase NEGATIVE (NEGATIVE) Urine WBC (Auto) NONE (0-5) /HPF Urine RBC (Auto) NONE (0-2) /HPF Urine Mucus (Auto) SLIGHT (NEGATIVE) /HPF Urine Culture Reflexed NO (NO) Urine Glucose NEGATIVE (NEGATIVE) mg/dL Urine Opiates Level NEGATIVE (NEGATIVE) Ur Methadone NEGATIVE (NEGATIVE) Urine Barbiturates NEGATIVE (NEGATIVE) Ur Phencyclidine (PCP) NEGATIVE (NEGATIVE) Urine Amphetamine POSITIVE (NEGATIVE) U Benzodiazepine Level NEGATIVE (NEGATIVE) Urine Cocaine NEGATIVE (NEGATIVE) Urine Marijuana (THC) NEGATIVE (NEGATIVE) 01/24/21 01/24/21 01/24/21 Range/Units 21:42 21:30 21:30 WBC (4.0-10.5) K/mm3 RBC (4.1-5.6) M/mm3 Hgb (12.5-18.0) gm/dl Hct (42-50) % MCV (78-100) fl MCH (26-32) pg MCHC (32-36) g/dl RDW (11.5-14.0) % Plt Count (150-450) K/mm3 MPV (7.5-11.0) fl Gran % (36.0-66.0) % Eos # (Auto) (0-0.5) Absolute Lymphs (auto) (1.0-4.6) Absolute Monos (auto) (0.0-1.3) Lymphocytes % (24.0-44.0) % Monocytes % (0.0-12.0) % Eosinophils % (0.00-5.0) % Basophils % (0.0-0.4) % Absolute Granulocytes (1.4-6.9) Basophils # (0-0.4) D-Dimer (215-500) ng/mL Sodium 142 (137-145) mmol/L Potassium 4.0 (3.5-5.1) mmol/L Chloride 104 (98-107) mmol/L Carbon Dioxide 26 (22-30) mmol/L Anion Gap 15.7 H (5-15) MEQ/L BUN 18 (9-20) mg/dL Creatinine 0.78 (0.66-1.25) mg/dL Estimated GFR > 60.0 ML/MIN Glucose 85 (74-106) mg/dL Lactic Acid 1.5 (0.4-2.0) Calcium 9.5 (8.4-10.2) mg/dL Total Bilirubin 1.60 H (0.2-1.3) mg/dL AST 36 (17-59) U/L ALT 29 (0-50) U/L Alkaline Phosphatase 67 (38-126) U/L Troponin I < 0.012 (0.000-0.034) ng/mL Serum Total Protein 7.5 (6.3-8.2) g/dL Albumin 4.7 (3.5-5.0) g/dL Urine Color (YELLOW) Urine Appearance (CLEAR) Urine pH (5-6) Ur Specific [place] (1.005-1.025) Urine Protein (Negative) Urine Ketones (NEGATIVE) Urine Blood (0-5) Shiva/ul Urine Nitrite (NEGATIVE) Urine Bilirubin (NEGATIVE) Urine Urobilinogen (0-1) mg/dL Ur Leukocyte Esterase (NEGATIVE) Urine WBC (Auto) (0-5) /HPF Urine RBC (Auto) (0-2) /HPF Urine Mucus (Auto) (NEGATIVE) /HPF Urine Culture Reflexed (NO) Urine Glucose (NEGATIVE) mg/dL Urine Opiates Level (NEGATIVE) Ur Methadone (NEGATIVE) Urine Barbiturates (NEGATIVE) Ur Phencyclidine (PCP) (NEGATIVE) Urine Amphetamine (NEGATIVE) U Benzodiazepine Level (NEGATIVE) Urine Cocaine (NEGATIVE) Urine Marijuana (THC) (NEGATIVE) 01/24/21 Range/Units 21:30 WBC 10.1 (4.0-10.5) K/mm3 RBC 5.15 (4.1-5.6) M/mm3 Hgb 15.2 (12.5-18.0) gm/dl Hct 45.1 (42-50) % MCV 87.6 (78-100) fl MCH 29.5 (26-32) pg MCHC 33.7 (32-36) g/dl RDW 12.9 (11.5-14.0) % Plt Count 183 (150-450) K/mm3 MPV 11.6 H (7.5-11.0) fl Gran % 66.7 H (36.0-66.0) % Eos # (Auto) 0.13 (0-0.5) Absolute Lymphs (auto) 2.40 (1.0-4.6) Absolute Monos (auto) 0.81 (0.0-1.3) Lymphocytes % 23.8 L (24.0-44.0) % Monocytes % 8.0 (0.0-12.0) % Eosinophils % 1.3 (0.00-5.0) % Basophils % 0.2 (0.0-0.4) % Absolute Granulocytes 6.73 (1.4-6.9) Basophils # 0.02 (0-0.4) D-Dimer (215-500) ng/mL Sodium (137-145) mmol/L Potassium (3.5-5.1) mmol/L Chloride (98-107) mmol/L Carbon Dioxide (22-30) mmol/L Anion Gap (5-15) MEQ/L BUN (9-20) mg/dL Creatinine (0.66-1.25) mg/dL Estimated GFR ML/MIN Glucose (74-106) mg/dL Lactic Acid (0.4-2.0) Calcium (8.4-10.2) mg/dL Total Bilirubin (0.2-1.3) mg/dL AST (17-59) U/L ALT (0-50) U/L Alkaline Phosphatase (38-126) U/L Troponin I (0.000-0.034) ng/mL Serum Total Protein (6.3-8.2) g/dL Albumin (3.5-5.0) g/dL Urine Color (YELLOW) Urine Appearance (CLEAR) Urine pH (5-6) Ur Specific [place] (1.005-1.025) Urine Protein (Negative) Urine Ketones (NEGATIVE) Urine Blood (0-5) Shiva/ul Urine Nitrite (NEGATIVE) Urine Bilirubin (NEGATIVE) Urine Urobilinogen (0-1) mg/dL Ur Leukocyte Esterase (NEGATIVE) Urine WBC (Auto) (0-5) /HPF Urine RBC (Auto) (0-2) /HPF Urine Mucus (Auto) (NEGATIVE) /HPF Urine Culture Reflexed (NO) Urine Glucose (NEGATIVE) mg/dL Urine Opiates Level (NEGATIVE) Ur Methadone (NEGATIVE) Urine Barbiturates (NEGATIVE) Ur Phencyclidine (PCP) (NEGATIVE) Urine Amphetamine (NEGATIVE) U Benzodiazepine Level (NEGATIVE) Urine Cocaine (NEGATIVE) Urine Marijuana (THC) (NEGATIVE) - Progress Progress Note: 01/25/21 00:50 Troponin neg x2 Pt wo ectopy or focal weakness during stay Counseled pt/family regarding: lab results, diagnosis, need for follow-up, rad results - Departure Departure Disposition: Home Clinical Impression: Syncope and collapse Condition: Stable Critical Care Time: No Referrals: EMILY LAI MD [Primary Care Provider] - Instructions: Syncope (Fainting) (DC) Additional Instructions: 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
[2021-01-24 23:48] LABS: Appearance CLEAR (CLEAR); Bilirubin NEGATIVE (NEGATIVE); Blood NEGATIVE Ery/ul (0-5); Glucose NEGATIVE (NEGATIVE); Ketones NEGATIVE (NEGATIVE); Leukocyte Esterase NEGATIVE (NEGATIVE); Mucus SLIGHT /HPF (NEGATIVE); Nitrite NEGATIVE (NEGATIVE); Protein,Urine Dip NEGATIVE (Negative); Specific Gravity 1.023 (1.005-1.025); Urobilinogen NEGATIVE mg/dL (0-1)
[2021-01-25 00:02] LABS: Amphetamine,Urine POSITIVE (NEGATIVE); Barbiturate,Urine NEGATIVE (NEGATIVE); Benzodiazepine,Urine NEGATIVE (NEGATIVE); Cocaine,Urine NEGATIVE (NEGATIVE); Methadone,Urine NEGATIVE (NEGATIVE); Opiate,Urine NEGATIVE (NEGATIVE); PCP,Urine NEGATIVE (NEGATIVE); THC,Urine NEGATIVE (NEGATIVE)
[2021-01-25 00:07] VITALS: PULSE 69
[2021-01-25 00:17] VITALS: O2SAT 100
[2021-01-25 01:09] VITALS: BP 123/85
--- NOTE | 2021-01-25 08:49 | XRAY ---
Indication: Syncope. Multiple contiguous axial images obtained through the head without contrast. Comparison: June 17, 2015. Normal appearing brain parenchyma, ventricles, and bony calvarium. Visualized paranasal sinuses and mastoid air cells are clear. Impression: Continued normal CT head without contrast exam. Comment: Preliminary interpretation made by [facility]. No critical discrepancy.
== END 2021-01-25 01:09 | disposition home or self-care (01) ==
LOC: ED 21:11
DX: R55 Syncope and collapse (principal); Z79.899 Other long term (current) drug therapy; I10 Essential (primary) hypertension; I25.2 Old myocardial infarction
CPT/HCPCS: 36415; 70450; 80053; 80307; 81001; 83605; 84484; 85025; 85379; 93005; 99284

== ENCOUNTER 2022-04-26 05:56 | Day surgery (SDC) | payer OTHER ==
[2022-04-26] MEDS ORDERED: Lactated Ringers 1,000 ML IV SCH (06:30)
[2022-04-26] MEDS ORDERED: Xylocaine-Mpf 2% 5 Ml Vial ONE (07:59)
[2022-04-26] MEDS ORDERED: Versed 2 MG/2 ML Injection ONE (07:59)
[2022-04-26] MEDS ORDERED: DIPRIVAN 200 MG/20 ML IV ONE (07:59)
[2022-04-26 09:01] VITALS: O2SAT 97
[2022-04-26 09:15] VITALS: BP 148/78; PULSE 64
--- NOTE | 2022-04-26 09:29 | OP ---
SURGERY DATE/TIME: 04/26/2022 0759 PREOPERATIVE DIAGNOSES: 1) Persistent gastroesophageal reflux disease. 2) Chest pain. POSTOPERATIVE DIAGNOSIS: Normal exam. PROCEDURE: EGD. SURGEON: Azael Up M.D. ANESTHESIA: MAC by Dung Spain CRNA. ESTIMATED BLOOD LOSS: None. SPECIMENS: None. DESCRIPTION OF PROCEDURE: After informed written consent was obtained, the patient was taken to the endoscopy suite. He had a bite block inserted and anesthesia was titrated to the desired level of consciousness. The endoscope was inserted into the posterior oropharynx and under direct visualization the esophagus was traversed. The esophageal mucosa was normal in appearance. There were no strictures or abnormalities encountered. Likewise, the gastroesophageal junction had a normal appearance. Upon entering the stomach, there was a normal rugated gastric mucosa free of any lesions or defects. The pylorus was traversed and the first and second portions of the duodenum was within normal limits. There were no obvious ulcerations or abnormalities encountered. Retroflexion showed no abnormalities in the upper aspect of the stomach. The scope was removed. The patient was transferred to the recovery room good condition.
== END 2022-04-26 09:10 | disposition home or self-care (01) ==
LOC: SDC 05:56
PROVIDERS: ATTEND Family Medicine
DX: K21.9 Gastro-esophageal reflux disease without esophagitis (principal); R07.9 Chest pain, unspecified
CPT/HCPCS: J2250; J2704

== ENCOUNTER 2022-05-19 21:09 | Emergency (ER) | payer OTHER ==
[2022-05-19] MEDS ORDERED: Nitrostat 0.4 MG (ED) SL ONE ×2 (21:14→21:31)
[2022-05-19] MEDS ORDERED: BABY ASPIRIN 81 MG CHEW PO ONE (21:14)
[2022-05-19] MEDS ORDERED: Sodium Chloride 0.9% 1000 ML 1,000 ML IV SCH (21:15)
[2022-05-19] MEDS ORDERED: PROTONIX 40 MG IV IV ONE ×2 (21:29→21:31)
[2022-05-19] MEDS ORDERED: Zofran 4 MG/2 ML VIAL IV ONE (21:29)
[2022-05-19] MEDS ORDERED: BABY ASPIRIN 81 MG CHEW ONE (21:30)
[2022-05-19] MEDS ORDERED: Zofran 4 MG/2 ML VIAL ONE (21:30)
[2022-05-19 21:31] LABS: Absolute Neutrophil Ct (ANC) 7.09 x10^3/uL (1.4-6.9); Basophil (Absolute #) 0.04 x10^3/uL (0-0.4); Eosinophil % 1.2 % (0.00-5.0); Eosinophil (Absolute #) 0.12 x10^3/uL (0-0.5); Hematocrit 44.5 % (42-50); Hemoglobin 14.8 g/dL (12.5-18.0); Lymphocyte (Absolute #) 2.47 x10^3/uL (1.0-4.6); Lymphocytes % 23.9 % (24.0-44.0); Mean Cell Volume 85.1 fL (78-100); Mean Corpuscular Hemoglobin 28.3 pg (26-32); Mean Corpuscular Hgb Concent. 33.3 g/dL (32-36); Mean Platelet Volume 10.3 fL (7.5-11.0); Monocyte (Absolute #) 0.57 x10^3/uL (0.0-1.3); Monocytes % 5.5 % (0.0-12.0); Neutrophil % 68.6 % (36.0-66.0); Platelet Count 245 x10^3/uL (150-450); Red Blood Count 5.23 x10^6/uL (4.1-5.6); Red Cell Distribution Width 12.7 % (11.5-14.0); White Blood Count 10.3 x10^3/uL (4.0-10.5)
[2022-05-19] MEDS ORDERED: Sodium Chloride 0.9% 1000 ML 1,000 ML ONE (21:31)
[2022-05-19 21:58] LABS: D-DIMER QUANTITATIVE < 0.19 mg/L (0.0-0.50); INR 1.03 (0.8-3.0); PROTIME 10.9 SECONDS (9.4-12.5); PTT 26.5 SECONDS (25.1-36.5)
[2022-05-19 22:01] LABS: ALKALINE PHOSPHATASE 62 U/L (38-126); AMYLASE 56 U/L (30-110); ANION GAP 9.9 MEQ/L (5-15); BLOOD UREA NITROGEN 12 mg/dL (9-20); CHLORIDE 108 mmol/L (98-107); Carbon Dioxide 24 mmol/L (22-30); Creatinine 1 0.73 mg/dL (0.66-1.25); EST GLOMERULAR FILTRATION RATE > 60.0 ML/MIN; Glucose 106 mg/dL (74-106); LIPASE 73 U/L (23-300); MAGNESIUM 2.1 mg/dL (1.6-2.3); Potassium 3.7 mmol/L (3.5-5.1); SGOT/AST 31 U/L (17-59); SGPT/ALT 31 U/L (0-50); SODIUM 138 mmol/L (137-145); Total Protein 6.4 g/dL (6.3-8.2)
[2022-05-19] MEDS ORDERED: Hydromorphone 1 mg/ml Injection IV ONE (22:09)
[2022-05-19] MEDS ORDERED: Hydromorphone 1 mg/ml Injection ONE (22:11)
[2022-05-19 23:10] VITALS: BP 132/87
[2022-05-20 00:08] VITALS: PULSE 96
[2022-05-20 00:08] LABS: Appearance Cloudy (Clear); Bacteria None Seen /HPF (None Seen); Bilirubin Negative (Negative); Blood Negative (Negative); Epithelial Cells None Seen /HPF (None Seen); Glucose Negative (Negative); Hyaline Casts 0-2 /LPF (0-2); Ketones Negative (Negative); Leukocyte Esterase Negative (Negative); Nitrite Negative (Negative); Protein,Urine Dip Negative (Negative); RBC 0-2 /HPF (0-5); Specific Gravity 1.025 (1.005-1.030); WBC 0-2 /HPF (0-5)
[2022-05-20 00:13] VITALS: O2SAT 95
--- NOTE | 2022-05-20 00:13 | ERPHSYRPT ---
- History of Present Illness Time Seen by Provider: 05/19/22 21:20 Historian: patient Exam Limitations: no limitations (Patient is a 32-year-old white male who presents with a complaint of substernal chest pain. He has a pulled muscle in his left shoulder which is being followed by orthopedics and he thought his pain was originally from that but he developed heartburn and continues to have left- sided chest pain and ) Patient Subjective Stated Complaint: pt states he has been having chest pressure that he originally thought was from a pulled muscle in his lt shoulder. states now he is having heart burn and cont to have lt side chest pain. had some shortness of breath with exertion while walking into er. Triage Nursing Assessment: pt alert and oriented, answers questions approp. pt ambulates into room with steady gait noted. pt short of breath with exertion while walking into er. heart rate 80 on monitor, sinus rhythm. skin warm and dr pepper Timing/Duration: today Activities at Onset: none Quality: throbbing Location: substernal Chest Pain Radiation: arm Severity of Pain-Max: moderate Severity of Pain-Current: moderate Modifying Factors: Improves With: nothing Associated Symptoms: nausea, palpitations, heartburn, shortness of breath Nitro Today/Relief: no nitro taken today Aspirin Treatment Today: 81 mg x 1 Allergies/Adverse Reactions: No Known Drug Allergies Allergy (Verified 05/19/22 21:25) Home Medications: Dextroamphetamine/Amphetamine [Dextroamp-Amphetamin 15 mg Tab] 10 mg PO TID 01/24/21 [History] Aspirin EC 81 mg [Ecotrin 81 mg] 81 mg PO DAILY 04/20/22 [History] Nitroglycerin 0.4 mg Tablet [Nitrostat 0.4 MG Tablet] 0.4 mg SL UD 04/20/22 [History] Omeprazole 40 mg PO DAILY 04/20/22 [History] Sertraline HCl 50 mg [Zoloft 50 mg Tablet] 100 mg PO DAILY 04/20/22 [History ] Albuterol 8 gm Mdi Hfa [Ventolin Hfa MDI] 8 gm Q4-6HPRN PRN 04/26/22 [History] Hx Tetanus, Diphtheria Vaccination/Date Given: Yes Hx Influenza Vaccination/Date Given: No Hx Pneumococcal Vaccination/Date Given: No Immunizations Up to Date: Yes Travel Risk - International Travel Have you traveled outside of the country in past 3 weeks: No - Coronavirus Screening Are you exhibiting any of the following symptoms?: No Close contact with a COVID-19 positive Pt in past 14-21 Days: No - Vaccine Status Have you recieved a Covid-19 vaccination: No - Review of Systems Constitutional: No Fever, No Chills Eyes: No Symptoms Ears, Nose, & Throat: No Symptoms Respiratory: Dyspnea, No Cough Cardiac: Chest Pain, No Edema, No Syncope Abdominal/Gastrointestinal: No Abdominal Pain, No Nausea, No Vomiting, No Diarrhea Genitourinary Symptoms: No Dysuria Musculoskeletal: No Back Pain, No Neck Pain Skin: No Rash Neurological: No Dizziness, No Focal Weakness, No Sensory Changes Psychological: No Symptoms Endocrine: No Symptoms All Other Systems: Reviewed and Negative - Past Medical History Pertinent Past Medical History: Yes Neurological History: Migraines ENT History: No Pertinent History Cardiac History: Hypertension, Myocardial Infarction (PA) Respiratory History: Asthma Endocrine Medical History: No Pertinent History Musculoskeletal History: Osteoarthritis GI Medical History: GERD History: No Pertinent History Psycho-Social History: Anxiety Male Reproductive Disorders: No Pertinent History Other Medical History: OA of knees tears. C4-6 disc protrusion - Past Surgical History Past Surgical History: Yes Neuro Surgical History: No Pertinent History Cardiac: Cardiac Catheterization Respiratory: No Pertinent History Gastrointestinal: No Pertinent History Genitourinary: No Pertinent History Musculoskeletal: No Pertinent History Male Surgical History: Vasectomy Other Surgical History: Cardiac cath X 2 , wisdon teeth and tooth removed,ingrown toe nails removed. ugi scope recently - Social History Smoking Status: Never smoker Exposure to second hand smoke: No Drug Use: none Patient Lives Alone: No Significant Family History: no pertinent family hx - Nursing Vital Signs Nursing Vital Signs: Initial Vital Signs Temperature 98.2 F 05/19/22 21:11 Pulse Rate 80 05/19/22 21:11 Respiratory Rate 18 05/19/22 21:11 Blood Pressure 134/92 05/19/22 21:11 O2 Sat by Pulse Oximetry 100 05/19/22 21:11 Pain Scale Pain Intensity 3 - Physical Exam General Appearance: mild distress, alert Eye Exam: PERRL/EOMI, eyes nml inspection Ears, Nose, Throat Exam: normal ENT inspection, moist mucous membranes Neck Exam: normal inspection, non-tender, supple, full range of motion Respiratory Exam: normal breath sounds, lungs clear, No respiratory distress Cardiovascular Exam: regular rate/rhythm, normal heart sounds Gastrointestinal/Abdomen Exam: soft, No tenderness, No mass Back Exam: normal inspection, No CVA tenderness, No vertebral tenderness Extremity Exam: normal inspection, normal range of motion Neurologic Exam: alert, oriented x 3, cooperative, normal mood/affect, sensation nml, No motor deficits Skin Exam: normal color, warm, dry SpO2: 95 - Course Nursing assessment & vital signs reviewed: Yes EKG Interpreted by Me: RATE (86), Other (Nonspecific interventricular conduction delay inferior Q waves and some early repolarization pattern ST segment elevation.) - Radiology Exams Chest X-ray Interpretation: Interpreted by me, Negative Ordered Tests: Active Orders 24 hr Category Date Time Status Electrotype Molder STAT Care 05/19/22 21:23 Active EKG-ER Only STAT Care 05/19/22 21:14 Active IV Insertion STAT Care 05/19/22 21:14 Active CHEST 1 VIEW (PORTABLE) Stat Exams 05/19/22 21:15 Taken AMYLASE Stat Lab 05/19/22 21:28 Completed CBC W DIFF Stat Lab 05/19/22 21:28 Completed CMP Stat Lab 05/19/22 21:28 Completed D-DIMER QUANTITATIVE Stat Lab 05/19/22 21:28 Completed LIPASE Stat Lab 05/19/22 21:28 Completed Lactic Acid Stat Lab 05/19/22 21:14 Completed MAGNESIUM Stat Lab 05/19/22 21:28 Completed NT PRO BNP Stat Lab 05/19/22 21:28 Completed PROTIME WITH INR Stat Lab 05/19/22 21:28 Completed PTT Stat Lab 05/19/22 21:28 Completed TROPONIN Q4H Lab 05/19/22 21:28 Completed TROPONIN Q4H Lab 05/19/22 23:57 Completed TROPONIN Q4H Lab 05/20/22 01:15 Ordered TROPONIN Q4H Lab 05/20/22 05:15 Ordered UA W/RFX UR CULTURE Stat Lab 05/19/22 23:53 Completed Urine Triage Profile Stat Lab 05/19/22 23:53 Completed Medication Summary Generic Name Dose Route Start Last Admin Trade Name Freq PRN Reason Stop Dose Admin Sodium Chloride 1,000 mls @ 100 mls/hr 05/19/22 21:15 05/19/22 21:34 Sodium Chloride 0.9% 1000 Ml IV 06/18/22 21:14 100 mls/hr .Q10H LEONORA Administration Discontinued Medications Generic Name Dose Route Start Last Admin Trade Name Carole PRN Reason Stop Dose Admin Aspirin 324 mg 05/19/22 21:14 05/19/22 21:35 Aspirin 81 Mg Tab.Chew PO 05/19/22 21:15 324 mg STAT ONE Administration Aspirin Confirm 05/19/22 21:30 Aspirin 81 Mg Tab.Chew Administered 05/19/22 21:31 Dose 324 mg .ROUTE .STK-MED ONE Hydromorphone HCl 1 mg 05/19/22 22:09 05/19/22 22:12 Hydromorphone 1 Mg/1ml Inj 1 Mg/Ml Syringe IV 05/19/22 22:10 1 mg STAT ONE Administration Hydromorphone HCl Confirm 05/19/22 22:11 Hydromorphone 1 Mg/1ml Inj 1 Mg/Ml Syringe Administered 05/19/22 22:12 Dose 1 mg .ROUTE .STK-MED ONE Nitroglycerin 0.4 mg 05/19/22 21:14 05/19/22 21:35 Nitroglycerin 0.4 Mg (Ed) 0.4 Mg Tab.Subl SL 05/19/22 21:15 0.4 mg STAT ONE Administration Nitroglycerin Confirm 05/19/22 21:31 Nitroglycerin 0.4 Mg (Ed) 0.4 Mg Tab.Subl Administered 05/19/22 21:32 Dose 0.4 mg SL .STK-MED ONE Ondansetron HCl 4 mg 05/19/22 21:29 05/19/22 21:35 Ondansetron Hcl 4 Mg/2 Ml Vial IV 05/19/22 21:30 4 mg STAT ONE Administration Ondansetron HCl Confirm 05/19/22 21:30 Ondansetron Hcl 4 Mg/2 Ml Vial Administered 05/19/22 21:31 Dose 4 mg .ROUTE .STK-MED ONE Pantoprazole Sodium 40 mg 05/19/22 21:29 05/19/22 21:35 Pantoprazole 40 Mg Vial IV 05/19/22 21:30 40 mg STAT ONE Administration Pantoprazole Sodium Confirm 05/19/22 21:31 Pantoprazole 40 Mg Vial Administered 05/19/22 21:32 Dose 40 mg IV .STK-MED ONE Lab/Rad Data: Laboratory Result Diagrams 05/19/22 21:28 05/19/22 21:28 Laboratory Results 05/19/22 05/19/22 05/19/22 Range/Units 23:57 23:53 23:53 WBC (4.0-10.5) x10^3/uL RBC (4.1-5.6) x10^6/uL Hgb (12.5-18.0) g/dL Hct (42-50) % MCV (78-100) fL MCH (26-32) pg MCHC (32-36) g/dL RDW (11.5-14.0) % Plt Count (150-450) x10^3/uL MPV (7.5-11.0) fL Gran % (36.0-66.0) % Immature Gran % (Auto) (0.00-0.4) % Nucleat RBC Rel Count (0.00-0.1) % Eos # (Auto) (0-0.5) x10^3/uL Immature Gran # (Auto) (0.00-0.03) x10^3u/L Absolute Lymphs (auto) (1.0-4.6) x10^3/uL Absolute Monos (auto) (0.0-1.3) x10^3/uL Absolute Nucleated RBC (0.00-0.01) x10^3u/L Lymphocytes % (24.0-44.0) % Monocytes % (0.0-12.0) % Eosinophils % (0.00-5.0) % Basophils % (0.0-0.4) % Absolute Granulocytes (1.4-6.9) x10^3/uL Basophils # (0-0.4) x10^3/uL PT (9.4-12.5) SECONDS INR (0.8-3.0) APTT (25.1-36.5) SECONDS D-Dimer (0.0-0.50) mg/L Sodium (137-145) mmol/L Potassium (3.5-5.1) mmol/L Chloride (98-107) mmol/L Carbon Dioxide (22-30) mmol/L Anion Gap (5-15) MEQ/L BUN (9-20) mg/dL Creatinine (0.66-1.25) mg/dL Estimated GFR ML/MIN Glucose (74-106) mg/dL Lactic Acid (0.4-2.0) Calcium (8.4-10.2) mg/dL Magnesium (1.6-2.3) mg/dL Total Bilirubin (0.2-1.3) mg/dL AST (17-59) U/L ALT (0-50) U/L Alkaline Phosphatase (38-126) U/L Troponin I < 0.012 (0.000-0.034) ng/mL NT-Pro-B Natriuret Pep (0-450) pg/mL Serum Total Protein (6.3-8.2) g/dL Albumin (3.5-5.0) g/dL Amylase (30-110) U/L Lipase (23-300) U/L Urine Color Yellow (Yellow) Urine Appearance Cloudy A (Clear) Urine pH 7.0 (4.6-8.0) Ur Specific Melvin 1.025 (1.005-1.030) Urine Protein Negative (Negative) Urine Ketones Negative (Negative) Urine Blood Negative (Negative) Urine Nitrite Negative (Negative) Urine Bilirubin Negative (Negative) Urine Urobilinogen 1.0 A (0.2) mg/dL Ur Leukocyte Esterase Negative (Negative) U Hyaline Cast (Auto) 0-2 (0-2) /LPF Urine Microscopic RBC 0-2 (0-5) /HPF Urine Microscopic WBC 0-2 (0-5) /HPF Ur Epithelial Cells None Seen (None Seen) /HPF Urine Bacteria None Seen (None Seen) /HPF Urine Culture Reflexed NO (NO) Urine Glucose Negative (Negative) mg/dL Urine Opiates Level POSITIVE (NEGATIVE) Ur Methadone NEGATIVE (NEGATIVE) Urine Barbiturates NEGATIVE (NEGATIVE) Ur Phencyclidine (PCP) NEGATIVE (NEGATIVE) Urine Amphetamine POSITIVE (NEGATIVE) U Benzodiazepine Level NEGATIVE (NEGATIVE) Urine Cocaine NEGATIVE (NEGATIVE) Urine Marijuana (THC) NEGATIVE (NEGATIVE) 05/19/22 05/19/22 05/19/22 Range/Units 21:28 21:28 21:28 WBC (4.0-10.5) x10^3/uL RBC (4.1-5.6) x10^6/uL Hgb (12.5-18.0) g/dL Hct (42-50) % MCV (78-100) fL MCH (26-32) pg MCHC (32-36) g/dL RDW (11.5-14.0) % Plt Count (150-450) x10^3/uL MPV (7.5-11.0) fL Gran % (36.0-66.0) % Immature Gran % (Auto) (0.00-0.4) % Nucleat RBC Rel Count (0.00-0.1) % Eos # (Auto) (0-0.5) x10^3/uL Immature Gran # (Auto) (0.00-0.03) x10^3u/L Absolute Lymphs (auto) (1.0-4.6) x10^3/uL Absolute Monos (auto) (0.0-1.3) x10^3/uL Absolute Nucleated RBC (0.00-0.01) x10^3u/L Lymphocytes % (24.0-44.0) % Monocytes % (0.0-12.0) % Eosinophils % (0.00-5.0) % Basophils % (0.0-0.4) % Absolute Granulocytes (1.4-6.9) x10^3/uL Basophils # (0-0.4) x10^3/uL PT 10.9 (9.4-12.5) SECONDS INR 1.03 (0.8-3.0) APTT 26.5 (25.1-36.5) SECONDS D-Dimer < 0.19 (0.0-0.50) mg/L Sodium 138 (137-145) mmol/L Potassium 3.7 (3.5-5.1) mmol/L Chloride 108 H (98-107) mmol/L Carbon Dioxide 24 (22-30) mmol/L Anion Gap 9.9 (5-15) MEQ/L BUN 12 (9-20) mg/dL Creatinine 0.73 (0.66-1.25) mg/dL Estimated GFR > 60.0 ML/MIN Glucose 106 (74-106) mg/dL Lactic Acid (0.4-2.0) Calcium 9.0 (8.4-10.2) mg/dL Magnesium 2.1 (1.6-2.3) mg/dL Total Bilirubin 0.70 (0.2-1.3) mg/dL AST 31 (17-59) U/L ALT 31 (0-50) U/L Alkaline Phosphatase 62 (38-126) U/L Troponin I < 0.012 (0.000-0.034) ng/mL NT-Pro-B Natriuret Pep 18.0 (0-450) pg/mL Serum Total Protein 6.4 (6.3-8.2) g/dL Albumin 4.0 (3.5-5.0) g/dL Amylase 56 (30-110) U/L Lipase 73 (23-300) U/L Urine Color (Yellow) Urine Appearance (Clear) Urine pH (4.6-8.0) Ur Specific Melvin (1.005-1.030) Urine Protein (Negative) Urine Ketones (Negative) Urine Blood (Negative) Urine Nitrite (Negative) Urine Bilirubin (Negative) Urine Urobilinogen (0.2) mg/dL Ur Leukocyte Esterase (Negative) U Hyaline Cast (Auto) (0-2) /LPF Urine Microscopic RBC (0-5) /HPF Urine Microscopic WBC (0-5) /HPF Ur Epithelial Cells (None Seen) /HPF Urine Bacteria (None Seen) /HPF Urine Culture Reflexed (NO) Urine Glucose (Negative) mg/dL Urine Opiates Level (NEGATIVE) Ur Methadone (NEGATIVE) Urine Barbiturates (NEGATIVE) Ur Phencyclidine (PCP) (NEGATIVE) Urine Amphetamine (NEGATIVE) U Benzodiazepine Level (NEGATIVE) Urine Cocaine (NEGATIVE) Urine Marijuana (THC) (NEGATIVE) 05/19/22 05/19/22 Range/Units 21:28 21:14 WBC 10.3 (4.0-10.5) x10^3/uL RBC 5.23 (4.1-5.6) x10^6/uL Hgb 14.8 (12.5-18.0) g/dL Hct 44.5 (42-50) % MCV 85.1 (78-100) fL MCH 28.3 (26-32) pg MCHC 33.3 (32-36) g/dL RDW 12.7 (11.5-14.0) % Plt Count 245 (150-450) x10^3/uL MPV 10.3 (7.5-11.0) fL Gran % 68.6 H (36.0-66.0) % Immature Gran % (Auto) 0.4 (0.00-0.4) % Nucleat RBC Rel Count 0.0 (0.00-0.1) % Eos # (Auto) 0.12 (0-0.5) x10^3/uL Immature Gran # (Auto) 0.04 H (0.00-0.03) x10^3u/L Absolute Lymphs (auto) 2.47 (1.0-4.6) x10^3/uL Absolute Monos (auto) 0.57 (0.0-1.3) x10^3/uL Absolute Nucleated RBC 0.00 (0.00-0.01) x10^3u/L Lymphocytes % 23.9 L (24.0-44.0) % Monocytes % 5.5 (0.0-12.0) % Eosinophils % 1.2 (0.00-5.0) % Basophils % 0.4 (0.0-0.4) % Absolute Granulocytes 7.09 H (1.4-6.9) x10^3/uL Basophils # 0.04 (0-0.4) x10^3/uL PT (9.4-12.5) SECONDS INR (0.8-3.0) APTT (25.1-36.5) SECONDS D-Dimer (0.0-0.50) mg/L Sodium (137-145) mmol/L Potassium (3.5-5.1) mmol/L Chloride (98-107) mmol/L Carbon Dioxide (22-30) mmol/L Anion Gap (5-15) MEQ/L BUN (9-20) mg/dL Creatinine (0.66-1.25) mg/dL Estimated GFR ML/MIN Glucose (74-106) mg/dL Lactic Acid 1.5 (0.4-2.0) Calcium (8.4-10.2) mg/dL Magnesium (1.6-2.3) mg/dL Total Bilirubin (0.2-1.3) mg/dL AST (17-59) U/L ALT (0-50) U/L Alkaline Phosphatase (38-126) U/L Troponin I (0.000-0.034) ng/mL NT-Pro-B Natriuret Pep (0-450) pg/mL Serum Total Protein (6.3-8.2) g/dL Albumin (3.5-5.0) g/dL Amylase (30-110) U/L Lipase (23-300) U/L Urine Color (Yellow) Urine Appearance (Clear) Urine pH (4.6-8.0) Ur Specific Melvin (1.005-1.030) Urine Protein (Negative) Urine Ketones (Negative) Urine Blood (Negative) Urine Nitrite (Negative) Urine Bilirubin (Negative) Urine Urobilinogen (0.2) mg/dL Ur Leukocyte Esterase (Negative) U Hyaline Cast (Auto) (0-2) /LPF Urine Microscopic RBC (0-5) /HPF Urine Microscopic WBC (0-5) /HPF Ur Epithelial Cells (None Seen) /HPF Urine Bacteria (None Seen) /HPF Urine Culture Reflexed (NO) Urine Glucose (Negative) mg/dL Urine Opiates Level (NEGATIVE) Ur Methadone (NEGATIVE) Urine Barbiturates (NEGATIVE) Ur Phencyclidine (PCP) (NEGATIVE) Urine Amphetamine (NEGATIVE) U Benzodiazepine Level (NEGATIVE) Urine Cocaine (NEGATIVE) Urine Marijuana (THC) (NEGATIVE) - Progress Progress: improved Air Movement: good Blood Culture(s) Obtained: No Antibiotics given: No - Departure Departure Disposition: Home Clinical Impression: Chest pain Condition: Stable Critical Care Time: No Referrals: EMILY LAI MD [Primary Care Provider] - Follow up/PCP as directed Instructions: Chest Pain (DC)
[2022-05-20 00:18] LABS: ADD URINE CULTURE? NO (NO)
[2022-05-20 00:19] LABS: Amphetamine,Urine POSITIVE (NEGATIVE); Barbiturate,Urine NEGATIVE (NEGATIVE); Benzodiazepine,Urine NEGATIVE (NEGATIVE); Cocaine,Urine NEGATIVE (NEGATIVE); Methadone,Urine NEGATIVE (NEGATIVE); Opiate,Urine POSITIVE (NEGATIVE); PCP,Urine NEGATIVE (NEGATIVE); THC,Urine NEGATIVE (NEGATIVE)
--- NOTE | 2022-05-20 07:57 | XRAY ---
Indication: Chest pain. Comparison: February 06, 2020 Portable chest less inflated and remains clear. Heart not enlarged. Bony thorax intact. No new/acute findings.
== END 2022-05-20 01:00 | disposition home or self-care (01) ==
LOC: ED 21:09
DX: R07.9 Chest pain, unspecified (principal); I10 Essential (primary) hypertension; Z79.899 Other long term (current) drug therapy; Z28.310 Unvaccinated for COVID-19
CPT/HCPCS: 36000; 36415; 71045; 80053; 80307; 81001; 82150; 83605; 83690; 83735; 83880; 84484; 85025; 85379; 85610; 85730; 93005; 93041; 96374; 96375; 99284; J1170; J2405; A9270-GY

== ENCOUNTER → 2023-06-15 | Day surgery (SDC) | payer OTHER ==
[~2023-06-15] MED LIST: BRIDION 200MG/2ML IV ONE; DIPRIVAN 200 MG/20 ML IV ONE; Epinephrine Preservative Free 1 MG/ML ONE; Quelicin Fliptop 200 MG/10 ML ONE; SUBLIMAZE 100 MCG/2 ML ONE; Sensorcaine 0.25% 10 ML ONE; Versed 2 MG/2 ML Injection ONE; Zemuron 100 MG/10 ML ONE; Zofran 4 MG/2 ML VIAL ONE
[2023-06-15] MEDS: CEFAZOLIN 2 GM-D5W BAG** 2 GM/50 ML ML IV SCH (06:34)
[2023-06-15] MEDS: Lactated Ringers 1,000 ML IV SCH (06:34)
[2023-06-15 06:47] LABS: Hematocrit 44.3 % (42-50); Mean Cell Volume 83.3 fL (78-100); Mean Corpuscular Hemoglobin 28.2 pg (26-32); Mean Corpuscular Hgb Concent. 33.9 g/dL (32-36); Mean Platelet Volume 10.6 fL (7.5-11.0); Platelet Count 212 x10^3/uL (150-450); Red Blood Count 5.32 x10^6/uL (4.1-5.6); Red Cell Distribution Width 12.5 % (11.5-14.0); White Blood Count 6.9 x10^3/uL (4.0-10.5)
[2023-06-15 06:50] VITALS: RESP 18
[2023-06-15 07:00] LABS: ALBUMIN 4.1 g/dL (3.5-5.0); ANION GAP 10.8 MEQ/L (5-15); BILIRUBIN,TOTAL 1.1 mg/dL (0.2-1.3); Calcium 9.2 mg/dL (8.4-10.2); Creatinine 1 0.74 mg/dL (0.66-1.25); EST GLOMERULAR FILTRATION RATE 122.7 ML/MIN; Potassium 3.9 mmol/L (3.5-5.1); Total Protein 6.8 g/dL (6.3-8.2)
[2023-06-15 10:28] VITALS: BP 121/72; TEMP 96.4
[2023-06-15 10:55] VITALS: PULSE 78; O2SAT 96
--- NOTE | 2023-06-15 14:03 | OP ---
DATE OF PROCEDURE: 06/15/2023 0719 PREOPERATIVE DIAGNOSIS: Left medial meniscal tear. POSTOPERATIVE DIAGNOSIS: Left medial meniscal tear. PROCEDURE: Right knee arthroscopy with partial medial meniscectomy. ATTENDING PHYSICIAN: STANTON TRUJILLO M.D. ANESTHESIA: General. ESTIMATED BLOOD LOSS: Zero. FLUIDS: Per anesthesia records. SPECIMENS: None. DRAINS: None. COMPLICATIONS: None. FINDINGS: Normal articular surfaces of all three compartments. Normal ACL. Patella at midline. There is a mild medial patella plica. There is mild tear of the medial meniscus at the 7:00 to 8:00 position. The lateral meniscus was okay. No loose body seen. INDICATIONS FOR PROCEDURE: The patient is a 33-year-old white male with painful left knee refractory to conservative care. Referred to our service for pain relief. DESCRIPTION OF PROCEDURE: Patient was seen in the holding area. The left knee is initialed by me. He is taken to the OR where he had general anesthesia, had 2 gm of Cefazolin IV preoperatively. He was positioned supine with the right lower extremity in an Nav leg lam with the left lower extremity in an arthroscopic leg lam. The knee was prepped and draped sterilely. Time-out was performed by me. Lateral incision made 5 mm lateral to the patellar tendon and 5 mm superior to joint line with #15 blade aimed towards the notch. A blunt trocar was used to introduce 30 degree scope through the lateral joint line portal. Pump pressure was set at 55 mm of Mercury. Irrigating the field with normal saline with 1 cc of 1:1,000 epinephrine per 3 liter bag. The three compartments were inspected and spinal needle was used to locate the medial incision and then a 5 mm vertical incision is made 5 mm superior to the joint line, 5 mm medial to patellar tendon. A probe was used to probe the intraarticular structures and findings as mentioned above. A 3.5 mm curved shaver was used to debride the anterior medial meniscus and the plica on the medial side back to a smooth edge. The knee is then thoroughly irrigated. All fluid was allowed to extravasate through the cannulas. Portals were closed with 4-0 Monocryl subcuticular sutures, Steri-Strips and Mastisol. The knee was injected with 10 cc of 0.25% Marcaine with epinephrine injected in the incision band into the knee. Steri-Strips and Mastisol applied. Sterile dressings applied. The patient was the repositioned supine. DISPOSITION: Patient to be weightbearing as tolerated. Go home on Kimberly 7.5 mg 1 p.o. every six hours PRN script #20. Return in three weeks. Shower postoperative day three.
== END ==
LOC: SDC 05:47
PROVIDERS: ATTEND Orthopaedic Surgery
DX: S83.242A Other tear of medial meniscus, current injury, left knee, initial encounter (principal)
CPT/HCPCS: 36415; 80053; 85027; 93005; J0171; J0330; J0690; J2250; J2405; J2704; J3010

== ENCOUNTER 2024-02-19 10:05 | Emergency (ER) | payer OTHER ==
--- NOTE | 2024-02-19 10:15 | ERPHSYRPT ---
- History of Present Illness Time Seen by Provider: 02/19/24 10:20 Source: patient Physician History: 33-year-old male presents to our emergency department as a referral from [facility] for headache. Patient states he had a severe headache last night. Patient states that headache started earlier in the day. Headache was mostly at the left front of his face around the sinuses. As he was cooking the headache worsened. Patient states the left side of his face was very painful. Patient denies a history of the same. The patient's headache improved with a dose of ibuprofen. Headache is rated 5 out of 10 at this time. No neurologic manifestations. Headache was gradual onset. Nonacute. Headache was not associated with any strenuous activity. No fever no photophobia no nuchal rigidity. No neurologic manifestation to his pain. Symptoms are mild to moderate in intensity. No specific worsening improving factors. Patient is otherwise healthy. He voices no other complaints or concerns at this time. Portions of this note were created with voice recognition technology. There may be grammatical, spelling, punctuation or sound alike errors Timing/Duration: yesterday Severity: moderate Modifying Factors: Improves With: nothing Associated Symptoms: denies symptoms Allergies/Adverse Reactions: hydromorphone [From Dilaudid] Adverse Reaction (Severe, Verified 02/19/24 10:12) makes patient feel Angry Home Medications: Aspirin EC 81 mg [Ecotrin 81 mg] 81 mg PO DAILY 04/20/22 [History] Nitroglycerin 0.4 mg Tablet [Nitrostat 0.4 MG Tablet] 0.4 mg SL UD 04/20/22 [History] Albuterol 8 gm Mdi Hfa [Ventolin Hfa MDI] 8 gm Q4-6HPRN PRN 04/26/22 [History] Lisdexamfetamine Dimesylate [Vyvanse] 30 mg PO DAILY 06/05/23 [History] Multivitamin [Multi-Vitamin Daily] 1 each PO DAILY 06/05/23 [History] Hx Tetanus, Diphtheria Vaccination/Date Given: Yes Hx Influenza Vaccination/Date Given: No Hx Pneumococcal Vaccination/Date Given: No - Review of Systems Constitutional: No Symptoms, No Fever, No Chills Eyes: No Symptoms Ears, Nose, & Throat: No Symptoms Respiratory: No Symptoms, No Cough, No Dyspnea Cardiac: No Symptoms, No Chest Pain, No Edema, No Syncope Abdominal/Gastrointestinal: No Symptoms, No Abdominal Pain, No Nausea, No Vomiting, No Diarrhea Genitourinary Symptoms: No Symptoms, No Dysuria Musculoskeletal: No Symptoms, No Back Pain, No Neck Pain Skin: No Symptoms, No Rash Neurological: No Symptoms, No Dizziness, No Focal Weakness, No Sensory Changes Psychological: No Symptoms Endocrine: No Symptoms Immunological/Allergic: No Symptoms All Other Systems: Reviewed and Negative - Past Medical History Pertinent Past Medical History: Yes Neurological History: Migraines ENT History: No Pertinent History Cardiac History: Hypertension, Myocardial Infarction ([place]) Respiratory History: Asthma Endocrine Medical History: No Pertinent History Musculoskeletal History: Osteoarthritis GI Medical History: GERD History: No Pertinent History Psycho-Social History: Anxiety Male Reproductive Disorders: No Pertinent History Other Medical History: OA of knees tears. C4-6 disc protrusion - Past Surgical History Past Surgical History: Yes Neuro Surgical History: No Pertinent History Cardiac: Cardiac Catheterization Respiratory: No Pertinent History Gastrointestinal: No Pertinent History Genitourinary: No Pertinent History Musculoskeletal: No Pertinent History Male Surgical History: Vasectomy Other Surgical History: Cardiac cath X 2 , [place] teeth and tooth removed,ingrown toe nails removed. ugi scope recently Significant Family History: no pertinent family hx - Social History Smoking Status: Never smoker Exposure to second hand smoke: No Drug Use: none Patient Lives Alone: No - Nursing Vital Signs Nursing Vital Signs: Initial Vital Signs Temperature 97.3 F 02/19/24 10:15 Pulse Rate 73 02/19/24 10:15 Respiratory Rate 18 02/19/24 10:15 Blood Pressure 132/79 02/19/24 10:15 O2 Sat by Pulse Oximetry 99 02/19/24 10:15 Pain Scale Pain Intensity 0 - Physical Exam General Appearance: no apparent distress, alert Eye Exam: PERRL/EOMI, eyes nml inspection Ears, Nose, Throat Exam: normal ENT inspection, TMs normal, pharynx normal, moist mucous membranes Neck Exam: normal inspection, non-tender, supple, full range of motion Respiratory Exam: normal breath sounds, lungs clear, No respiratory distress Cardiovascular Exam: regular rate/rhythm, normal heart sounds, normal peripheral pulses Gastrointestinal/Abdomen Exam: soft, normal bowel sounds, No tenderness, No mass Back Exam: normal inspection, normal range of motion, No CVA tenderness, No vertebral tenderness Extremity Exam: normal inspection, normal range of motion, pelvis stable Neurologic Exam: alert, oriented x 3, cooperative, normal mood/affect, nml cerebellar function, nml station & gait, sensation nml, No motor deficits Skin Exam: normal color, warm, dry, No rash Lymphatic Exam: No adenopathy SpO2 Interpretation: normal SpO2: 99 O2 Delivery: Room Air - Course Nursing assessment & vital signs reviewed: Yes - CT Exams Head CT Interpretation: Tele-radiologist Report (Continued normal CT head without contrast) Ordered Tests: Active Orders 24 hr Category Date Time Status HEAD WITHOUT CONTRAST [CT] Stat Exams 02/19/24 10:15 Completed Medication Summary Discontinued Medications Generic Name Dose Route Start Last Admin Trade Name Freq PRN Reason Stop Dose Admin Diphenhydramine HCl 25 mg 02/19/24 10:19 02/19/24 10:25 Diphenhydramine Hcl 50 Mg/Ml Vial IV 02/19/24 10:20 25 mg STAT ONE Administration Diphenhydramine HCl Confirm 02/19/24 10:24 Diphenhydramine Hcl 50 Mg/Ml Vial Administered 02/19/24 10:25 Dose 50 mg .ROUTE .STK-MED ONE Sodium Chloride 1,000 mls @ 999 mls/hr 02/19/24 10:18 02/19/24 11:27 Sodium Chloride 0.9% 1000 Ml IV 02/19/24 11:18 Infused .Q1H1M STA Infusion Sodium Chloride Confirm 02/19/24 10:24 Sodium Chloride 0.9% 1000 Ml Administered 02/19/24 10:25 Dose 1,000 mls @ ud .ROUTE .STK-MED ONE Ketorolac Tromethamine 30 mg 02/19/24 10:18 02/19/24 10:26 Ketorolac Tromethamine 30 Mg/Ml Inj IV 02/19/24 10:19 30 mg STAT ONE Administration Ketorolac Tromethamine Confirm 02/19/24 10:24 Ketorolac Tromethamine 30 Mg/Ml Inj Administered 02/19/24 10:25 Dose 30 mg .ROUTE .STK-MED ONE Prochlorperazine Edisylate 10 mg 02/19/24 10:18 02/19/24 10:26 Prochlorperazine Edisylate 10 Mg/2 Ml Vial IV 02/19/24 10:19 10 mg STAT ONE Administration Prochlorperazine Edisylate Confirm 02/19/24 10:24 Prochlorperazine Edisylate 10 Mg/2 Ml Vial Administered 02/19/24 10:25 Dose 10 mg .ROUTE .STK-MED ONE - Progress Progress: improved Progress Note: 33-year-old male presents to our ED for evaluation of a headache. Headache was severe yesterday today patient rated his pain 5 out of 10. Patient neurologically normal. CT head negative for acute intracranial pathology. Patient received Toradol Compazine and Benadryl as well as IV fluids. Patient's headache reassessed. Headache resolved. Patient now requesting discharge. Repeat neuroexam within normal limits. No indication for further workup at this time. Will discharge home. Patient agrees to follow-up with his primary care doctor within 48 hours for reevaluation. Complexity problem addressed is moderate acute complicated. No critical care time. Complex of data reviewed and analyzed is moderate. Test ordered chest reviewed results analyzed and correlated clinically with history and physical exam. Risk of complication and or risk of morbidity/mortality patient management is low. Vital stable. Time spent to discharge patient approximately 15 minutes. Plan of care established for shared decision making. No social determinants of health present to impede follow-up. Portions of this note were created with voice recognition technology. There may be grammatical, spelling, punctuation or sound alike errors 02/19/24 12:02 02/19/24 12:10 Counseled pt/family regarding: diagnosis, need for follow-up, rad results - Departure Departure Disposition: Home Clinical Impression: Headache Condition: Stable Critical Care Time: No Referrals: EMILY LAI MD [Primary Care Provider] - Follow up/PCP as directed Additional Instructions: Discharge/Care Plan SIRI AKINS was seen on 02/19/24 in the Emergency Room. The patient was counseled regarding Diagnosis,Lab results, Imaging studies, need for follow up and when to return to the Emergency Room. Prescriptions given: Discharge Note I have spoken with the patient and/or caregivers. I have explained the patient's condition, diagnosis and treatment plan based on the information available to me at this time. I have answered the patient's and/or caregiver's questions and addressed any concerns. The patient and/or caregivers have as good understanding of the patient's diagnosis, condition and treatment plan as can be expected at this point. The vital signs have been stable. The patient's condition is stable and appropriate for discharge from the emergency department. The patient will pursue further outpatient evaluation with the primary care physician or other designated or consulting physician as outlined in the discharge instructions. The patient and/or caregivers are agreeable to this plan of care and follow-up instructions have been explained in detail. The patient and/or caregivers have received these instruction. The patient/and or caregivers are aware that any significant change in condition or worsening of symptoms should prompt an immediate return to this or the closest emergency department or call 911.
[2024-02-19 10:19] VITALS: RESP 18; TEMP 97.3
[2024-02-19] MEDS ORDERED: Compazine 10 MG/2 ML ONE (10:24)
[2024-02-19] MEDS ORDERED: BENADRYL 50 MG/ML ONE (10:24)
[2024-02-19] MEDS ORDERED: TORAdol 30 mg Injection ONE (10:24)
[2024-02-19] MEDS ORDERED: Sodium Chloride 0.9% 1000 ML 1,000 ML ONE (10:24)
[2024-02-19] MEDS: Sodium Chloride 0.9% 1000 ML 1,000 ML IV STA (10:25)
[2024-02-19] MEDS: BENADRYL 50 MG/ML IV ONE (10:25)
[2024-02-19] MEDS: TORAdol 30 mg Injection IV ONE (10:26)
[2024-02-19] MEDS: Compazine 10 MG/2 ML IV ONE (10:26)
--- NOTE | 2024-02-19 11:42 | XRAY ---
Indication: Headache and dizziness. No known injury. Multiple contiguous images obtained through the head without contrast. Comparison: January 24, 2021 Normal appearing brain parenchyma, ventricles, and bony calvarium. Visualized paranasal sinuses and mastoid air cells are clear. Impression: Continued normal CT head without contrast exam
[2024-02-19 12:03] VITALS: BP 116/65; PULSE 85
[2024-02-19 12:05] VITALS: O2SAT 99
== END 2024-02-19 12:15 | disposition home or self-care (01) ==
LOC: ED 10:05
DX: R51.9 Headache, unspecified (principal); I10 Essential (primary) hypertension; Z79.899 Other long term (current) drug therapy
CPT/HCPCS: 36000; 70450; 96360; 96374; 96375; 99284; J1200; J1885